=== PATIENT | male | born 1985 | race Caucasian/White ===

== ENCOUNTER 2020-07-10 12:26 | Emergency (ER) | payer BC ==
[~2020-07-10] VITALS: Ht 182.9 cm; Wt 102.1 kg
== END 2020-07-10 14:20 | disposition home or self-care (01) ==
LOC: ER 12:26
DX: S61.512A Laceration without foreign body of left wrist, initial encounter (principal); Z23 Encounter for immunization; V19.9XXA Pedal cyclist (driver) (passenger) injured in unspecified traffic accident, initial encounter
CPT/HCPCS: 12002; 90471; 99282-25